=== PATIENT | female | born 1970 | race Caucasian/White ===

== ENCOUNTER → 2016-09-19 | Outpatient (CLI) | payer BC ==
[~2016-09-19] MED LIST: GREEN TEA150 MG; IBUPROFEN400 MG PO; LEVOTHYROXINE150 MCG PO; MULTIPLE VITAMIN PO; OMEGA 31000 MG PO; SPIRONOLACTONE50 MG PO; VICODIN EQUIVAL1 TAB PO; VITAMIN D-31000 UNIT PO
== END ==
LOC: LAB SRH 15:49
DX: N89.8 Other specified noninflammatory disorders of vagina (principal)
CPT/HCPCS: 90001; 90047; 90155; 90364; 91004; 92863; 95059

== ENCOUNTER 2016-09-21 06:19 | Day surgery (SDC) | payer BC ==
--- NOTE | 2016-09-16 20:59 | HISTORY AND PHYSICAL ---
ADMITTED: 09/21/2016 CHIEF COMPLAINT: 1. Vaginal discharge HISTORY OF PRESENT ILLNESS: This patient has had a uterine artery embolization, myomectomy, and an ablation. She reports continuous discharge since her myomectomy and states that the discharge is green and mucus-like. A couple years ago, she tried antibiotics that did not seem to help. In December of last year, she had an ultrasound that measured her uterus at 10.2 cm, retroflexed, with a heterogenous myometrium that showed no specific focal fibroids. The endometrium measured 6.5 mm. The right ovary was normal in appearance and the left ovary was not seen on the vaginal probe, but it had been seen on the abdominal probe and at that time had a 3.1 cm simple cyst. Once again, she was tried on a course of antibiotics, which again did not help. Other options were then discussed with her up to and including the possibility of a hysterectomy. She has decided she would like to try a smaller surgery for now and is scheduled for hysteroscopy, D&C repeat ablation to try to evaluate the discharge and stop it. If that does not work, she would be interested in moving towards a hysterectomy. Surgical risks have been reviewed with her including infection, bleeding, damage to her structures, anesthesia, and the possibility of further surgery at the time or in the future. Informed consent has been signed. MEDICAL/SURGICAL HISTORY: Menstrual history includes menarche at age 6. LMP 2010. Obstetrical history includes 2 cesareans, in 1991 and 1996. Past surgical history: C-sections x2, tummy tuck in 2005, wisdom teeth in 2009, hysteroscopy, D&C ablation in 2010, and uterine artery embolization in 2013. Past medical history: Hypothyroidism and acne. MEDICATIONS: 1. Levothyroxine 150 mcg daily. 2. Spironolactone 50 mg daily. 3. Assorted vitamins that she takes over the counter. ALLERGIES: 1. AUGMENTIN. SOCIAL HISTORY: She is , G2, P2. Denies tobacco and drug use. Reports occasional alcohol intake on the weekends. FAMILY HISTORY: Her mother and siblings are alive and well. Her father's history is that her father is unknown. She denies any family history of hypertension, heart disease, diabetes, stroke, or cancer. REVIEW OF SYSTEMS: She denies headache, ear pain, throat pain, chest pain, shortness of breath, digestive disorders, and joint and extremity problems. PHYSICAL EXAMINATION: VITAL SIGNS: She is 5 feet 3 inches, weighs 113. Blood pressure 100/60, pulse 60 , temperature 97.9. GENERAL: She is well developed, well nourished, alert and oriented. HEENT: Within normal limits. HEART: Normal. LUNGS: Normal. ABDOMEN: Soft, nondistended. EXTREMITIES: No clubbing, cyanosis, or edema. IMPRESSION: 1. Chronic vaginal discharge. PLAN: Hysteroscopy, dilatation and curettage, ablation scheduled for 2016. Informed consent has been signed.
[~2016-09-21 06:19] MED LIST changes: -GREEN TEA150 MG; -IBUPROFEN400 MG PO; -VICODIN EQUIVAL1 TAB PO
[2016-09-21] MEDS ORDERED: GREEN TEA150 MG (06:38)
[2016-09-21] MEDS ORDERED: IBUPROFEN400 MG PO (09:02)
[2016-09-21] MEDS ORDERED: VICODIN EQUIVAL1 TAB PO (09:03)
--- NOTE | 2016-09-21 09:05 | Provider's Discharge Care Plan ---
Problem, Goal, Plan Problem List 1. Post-op pain Goals: Improve function Instructions: Follow up as directed
--- NOTE | 2016-09-21 09:05 | Provider's Discharge Care Plan ---
Problem, Goal, Plan Problem List 1. Post-op pain Goals: Improve function Instructions: Follow up as directed
--- NOTE | 2016-09-21 16:01 | OPERATIVE REPORT ---
DATE OF SURGERY: 09/21/2016 SURGEON: Debbie Lopez DO [employer] OPERATOR: None. PREOPERATIVE DIAGNOSIS: 1. Chronic vaginal discharge POSTOPERATIVE DIAGNOSES: 1. Chronic vaginal discharge 2. Cystic mass, posterior endometrium PROCEDURES PERFORMED: 1. Hysteroscopy 2. Dilation and Myosure 3. MyoSure evacuation of cystic mass 4. Unable to perform ablation. ANESTHESIA: LMA. COMPLICATIONS: None. CONDITION: Stable. ESTIMATED BLOOD LOSS: Minimal. FLUIDS: 600 mL of LR. Blood administered: None. DRAINS: 0. URINE OUTPUT: 200 mL preoperatively. PATHOLOGY SPECIMEN: Wall of the uterine, cystic mass. IMPLANTS/GRAFTS: None. SURGICAL FINDINGS: Uterus sounded to 7 cm, 3 of which were the cervix. Cystic mass in the posterior lower endometrial cavity. Unable to do the ablation due to narrowing of the endometrial cavity. SURGICAL TECHNIQUE: The patient was taken to the operating room where her anesthesia was obtained. She was prepped and draped in the normal sterile fashion in the lithotomy position. A pelvic exam under anesthesia was normal, and a sterile speculum was placed. The cervix had multiple red spots on it, consistent with low estrogenization. The anterior cervical lip was grasped with a single-toothed tenaculum, and the uterus was sounded to 7 cm, 3 of which were the cervix. There was initially a bit of stenosis at the external os, but this was entered with the sound. The cervix was then circumferentially injected with 0.5% Marcaine with epinephrine, using approximately 10 mL, and was then easily serially dilated to a #8 [place] dilator. The hysteroscope was advanced into the external os. The cervical canal was clear. On entry above the internal os, there was a cystic structure in the lower posterior endometrial cavity. The remainder of the endometrial cavity was clear. The MyoSure device was used to unroof the cystic area, and there was a pocket that had contained clear fluid or mucus. The contents were evacuated and as much of the cyst wall was removed as possible , using the MyoSure device. No other abnormalities were seen. The scope and MyoSure device were then removed from the patient. The NovaSure wand was positioned but was unable to be opened due to narrowing of the endometrial cavity. Therefore, the ablation was not performed. The wand was removed. The tenaculum was removed as well, and a small amount of bleeding resolved with direct pressure. All instruments were then removed from the patient, and she was awakened from her anesthesia and taken to the recovery room in stable condition.
== END 2016-09-21 12:16 | disposition home or self-care (01) ==
LOC: OR SRH 06:19 → SCU SRH 06:22
PROVIDERS: Obstetrics & Gynecology
PROC: 0UDB8ZX Extraction of Endometrium, Via Natural or Artificial Opening Endoscopic, Diagnostic (ICD-10-PCS; principal; 2016-09-21 07:30)
DX: N89.8 Other specified noninflammatory disorders of vagina (principal)
CPT/HCPCS: 29240; 50002; 60001; 70002; 80102; 81506; 83432; 83433; 93070